=== PATIENT | female | born 1955 | race Caucasian/White ===

== ENCOUNTER 2023-01-02 19:27 | Outpatient (REF) | payer BC, SELFPAY ==
[2023-01-02 22:15] LABS: C Diff PCR Negative (Negative)
[2023-01-03 23:54] LABS: Campylobacter PCR Negative (Negative); Salmonella PCR Negative (Negative); Shiga Toxin PCR Negative (Negative); Shigella/Enteroinvasive Ecoli Negative (Negative)
== END 2023-01-02 19:28 | disposition home or self-care (01) ==
LOC: LBN 19:27
PROVIDERS: Visit Provider Physician Assistant Medical
DX: R19.7 Diarrhea, unspecified (principal)
CPT/HCPCS: 87329; 87493; 87505; 87177

== ENCOUNTER 2023-07-09 13:00 | Outpatient (REF) | payer BC, SELFPAY ==
--- NOTE | 2023-07-09 10:30 | PAPFT_PTH ---
PATIENT: Malorie Mensah LOC: [facility] U#:[id number] AGE/SX: 67/F ROOM: RE07/09/[address]: Lore Velasquez : 1955 BED: DIS: 07/09/2023 SPEC #: [id number] RECD: 07/09/23 17:44 STATUS: POOJA REAlfonso #: [id number] ZAKIA: 07/09/23 10:[address]: Lore Velasquez DEPT: [facility] Cytology RECD BY: Felicity Hardwick ENTERED: 07/09/23 17:44 SP TYPE: PAPFT DANIEL DR: Unknown,Unknown Tissues: 1 - CX/ENDOCX FOR PAP SMEARS Procedures: PAP THIN PREP/[facility] Screening HPV DNA PROBE Comments: [id number]
[2023-07-09 15:35] LABS: Anion Gap 9.4 mmol/L (3-11); BUN 17 mg/dL (7-18); CO2 28.6 mmol/L (21.0-32.0); CREATININE 0.9 mg/dL (0.55-1.02); Calcium 9.5 mg/dL (8.5-10.1); Calculated LDL 162 mg/dL (<100); Chloride 106 mmol/L (98-107); Cholesterol 242 mg/dL (<200); Estimated GFR 70.95 (mL/min/1.73m2); Glucose 92 mg/dL (74-106); HDL Cholesterol 55 mg/dL (40-60); Potassium 4.8 mmol/L (3.5-5.1); Sodium 144 mmol/L (136-145); Triglyceride 126 mg/dL (<150)
== END 2023-07-09 13:01 | disposition home or self-care (01) ==
LOC: NCHCN 13:00
PROVIDERS: Visit Provider Nurse Practitioner Family
DX: Z13.220 Encounter for screening for lipoid disorders (principal); I10 Essential (primary) hypertension
CPT/HCPCS: 80048; 80061; 88142; 87624

== ENCOUNTER 2024-10-15 17:41 | Outpatient (REF) | payer OTHER, SELFPAY ==
[2024-10-19 10:04] LABS: Anaplasma phagocytophilum Negative (Negative); B. miyamotoi PCR Negative (Negative); Babesia divergens/MO-1 Negative (Negative); Babesia duncani Negative (Negative); Babesia microti Negative (Negative); Ehrlichia chaffeensis Negative (Negative); Ehrlichia ewingii/canis Negative (Negative); Ehrlichia muris eauclairensis Negative (Negative)
[2024-10-19 11:36] LABS: Lyme Ab w Rflx to Lyme Confirm Negative (Negative)
== END 2024-10-15 17:42 | disposition home or self-care (01) ==
LOC: NCHCN 17:41
PROVIDERS: Visit Provider Physician Assistant
DX: R41.89 Other symptoms and signs involving cognitive functions and awareness (principal)
CPT/HCPCS: 87798; 86618

== ENCOUNTER 2025-02-02 16:23 | Outpatient (REF) | payer OTHER, SELFPAY ==
[2025-02-02 20:09] LABS: HCT 40.8 % (36.0-46.0); HGB 13.0 g/dL (11.2-15.7); MCH 27.1 pg (27.0-33.0); MCHC 31.9 % (32.0-36.0); MCV 85 fL (80-95); MPV 9.6 fL (8.0-11.0); Platelet Count 304 10^3/uL (130-400); RBC 4.80 10^6/uL (3.93-5.22); RDW 13.2 % (11.7-14.6); RDW-SD 41.4 fL; WBC 6.96 10^3/uL (4.4-10.8)
[2025-02-02 20:19] LABS: ESR 30 mm/hr (0-30)
[2025-02-02 20:24] LABS: Anion Gap 8.8 mmol/L (3-11); BUN 13 mg/dL (7-18); C-Reactive Protein 0.53 mg/dL (<or=0.5); CO2 28.2 mmol/L (21.0-32.0); Calcium 9.2 mg/dL (8.5-10.1); Chloride 104 mmol/L (98-107); Estimated GFR 70.07 (mL/min/1.73m2); Glucose 97 mg/dL (74-106); Potassium 4.2 mmol/L (3.5-5.1); Sodium 141 mmol/L (136-145)
== END 2025-02-02 16:24 | disposition home or self-care (01) ==
LOC: NCHCN 16:23
PROVIDERS: Visit Provider Nurse Practitioner Family
DX: T14.90XD Injury, unspecified, subsequent encounter; W55.01XD Bitten by cat, subsequent encounter
CPT/HCPCS: 80048; 85027; 85652; 86140